=== PATIENT | female | born 1975 | race Caucasian/White ===

== ENCOUNTER → 2017-09-24 | Outpatient (CLI) | payer OTHER ==
--- NOTE | 2017-09-25 10:51 | MM ---
Reason for exam: screening (asymptomatic). Last mammogram was performed 6 years and 7 months ago. History: Family history of breast cancer in maternal grandmother at age 60. Took hormonal contraceptives for 5 years. Physical Findings: A clinical breast exam by your physician is recommended on an annual basis and results should be correlated with mammographic findings. MG Screening Mammo w CAD Bilateral CC and MLO view(s) were taken. Technologist: RT Amber (R)(M) Prior study comparison: March 10, 2011, [facility] DIGITAL RIGHT MAMMOGRAM w/CAD. February 27, 2011, bilateral digital screening mammo w/CAD. The breast tissue is heterogeneously dense. This may lower the sensitivity of mammography. Focal asymmetry left medial breast. This finding is changed and increased in size when compared with previous exams. ASSESSMENT: Incomplete: need additional imaging evaluation, BI-RAD 0 RECOMMENDATION: Special view mammogram of the left breast. If lesion persists on supplemental views, image directed ultrasound is recommended. [facility] will attempt to contact patient to return for supplemental views and ultrasound if indicated.
== END | disposition home or self-care (01) ==
LOC: RADMAMWWP 10:18
PROVIDERS: ATTEND Family Medicine
DX: Z12.31 Encounter for screening mammogram for malignant neoplasm of breast (principal)
CPT/HCPCS: 77067

== ENCOUNTER → 2017-10-04 | Outpatient (CLI) | payer OTHER ==
--- NOTE | 2017-10-09 08:52 | MM ---
Reason for exam: additional evaluation requested from abnormal screening. Last mammogram was performed less than 1 month ago. History: Family history of breast cancer in maternal aunt at age 70 and breast cancer in maternal grandmother at age 60. Took hormonal contraceptives for 5 years. Physical Findings: Nurse did not find any significant physical abnormalities on exam. MG Work Up Mamm w CAD LT Spot compression CC, spot compression CCRM, and LM view(s) were taken of the left breast. Prior study comparison: September 24, 2017, bilateral MG screening mammo w CAD. March 10, 2011, [facility] DIGITAL RIGHT MAMMOGRAM w/CAD. Nodular density persists. Ultrasound is recommended. These results were verbally communicated with the patient and result sheet given to the patient on 10/04/17. ASSESSMENT: Incomplete: need additional imaging evaluation, BI-RAD 0 RECOMMENDATION: Ultrasound of the left breast.
--- NOTE | 2017-10-09 08:54 | USB ---
Reason for exam: additional evaluation requested from abnormal screening. History: Family history of breast cancer in maternal aunt at age 70 and breast cancer in maternal grandmother at age 60. Took hormonal contraceptives for 5 years. US Breast Workup Limited LT Technologist: Adrianne Gloria, RT (R)(M) Left limited breast ultrasound including focal area of concern, retroareolar and axilla demonstrates no cystic or solid lesion seen. Given mammographic appearance, stereo core biopsy recommended. These results were verbally communicated with the patient and result sheet given to the patient on 10/04/17. ASSESSMENT: Suspicious, BI-RAD 4 RECOMMENDATION: Stereotactic core biopsy of the left breast. Called Dr. Priest with mammographic findings and has scheduled an appointment for the patient for 11/01/17 at 8:[address] Ernandez. Biopsy scheduled for 10/12/17 at 8:00. PRELIMINARY REPORT CALLED AND FAXED TO DR. ERNANDEZ ON 10/09/17.
== END | disposition home or self-care (01) ==
LOC: RADMAMWWP 14:21
PROVIDERS: ATTEND Family Medicine
DX: R92.8 Other abnormal and inconclusive findings on diagnostic imaging of breast (principal)
CPT/HCPCS: 77065

== ENCOUNTER 2017-12-23 01:23 | Emergency (ER) | payer MEDICAID, OTHER ==
[2017-12-23] MEDS ORDERED: KETOROLAC 30 MG/ML 1 ML VIAL IVP STA (02:06)
[2017-12-23] MEDS ORDERED: SODIUM CHLORIDE 0.9% 1,000 ML IV STA (02:06)
[2017-12-23] MEDS ORDERED: diphenhydrAMINE 50 MG CAP PO STA (02:06)
[2017-12-23] MEDS ORDERED: METOCLOPRAMIDE 5 MG/ML 2 ML VIAL IVP STA (02:06)
--- NOTE | 2017-12-23 02:09 | ED ---
General Adult HPI - General Source: patient, RN notes reviewed Mode of arrival: ambulatory Limitations: no limitations <Jonny Garduno P - Last Filed: 12/23/17 03:24> <Yanique Moreira P - Last Filed: 12/23/17 22:18> - General Chief complaint: Headache Stated complaint: Migrane Time Seen by Provider: 12/23/17 01:46 - History of Present Illness Initial comments: 42-year-old female presents to the emergency department for a chief complaint of headache 8 hours. Patient states this pain is consistent with previous migraines. She states the pain starts in the back of the head and travels up to her forehead. She denies this being the worst headache of her life. She admits to photosensitivity as well as sensitivity to sound. She admits to nausea as well. Patient states she has taken Motrin, Imitrex, and tramadol at home without relief.Patient has no other complaints at this time including shortness of breath, chest pain, abdominal pain, nausea or vomiting, or visual changes. (Jonny Garduno) - Related Data Home Medications Medication Instructions Recorded Confirmed Cholecalciferol [Vitamin D3] 1,000 unit PO DAILY 10/09/17 12/23/17 Citalopram Hydrobromide [CeleXA] 20 mg PO DAILY 10/09/17 12/23/17 Ergocalciferol [Vitamin D2] 50,000 unit PO Q7D 10/09/17 12/23/17 Ibuprofen [Motrin] 600 mg PO Q6HR PRN 10/09/17 12/23/17 Magnesium Oxide 800 mg PO DAILY 10/09/17 12/23/17 Propranolol HCl [Inderal Xl] 80 mg PO DAILY 10/09/17 12/23/17 SUMAtriptan SUCCINATE [Imitrex] 25 mg PO DAILY PRN 10/09/17 12/23/17 Vitamin B Complex 1 each PO DAILY 10/09/17 12/23/17 buPROPion HCL [Wellbutrin XL] 150 mg PO DAILY 10/09/17 12/23/17 traMADol HCL [Ultram] 50 mg PO Q6HR PRN 10/09/17 12/23/17 Allergies Allergy/AdvReac Type Severity Reaction Status Date / Time Penicillins Allergy Unknown Verified 12/23/17 01:39 Childhood venlafaxine [From Effexor] AdvReac Unknown Verified 12/23/17 01:39 Review of Systems ROS Other: All systems not noted in ROS Statement are negative. <Jonny Garduno P - Last Filed: 12/23/17 03:24> ROS Other: All systems not noted in ROS Statement are negative. <HarishYanique P - Last Filed: 12/23/17 22:18> ROS Statement: Those systems with pertinent positive or pertinent negative responses have been documented in the HPI. Past Medical History Past Medical History: Hypertension Additional Past Medical History / Comment(s): Migraine headaches, celiac disease History of Any Multi-Drug Resistant Organisms: None Reported Past Surgical History: Adenoidectomy, Tonsillectomy Additional Past Surgical History / Comment(s): novasure procedure 2010 Past Anesthesia/Blood Transfusion Reactions: Motion Sickness Past Psychological History: Anxiety, Depression Smoking Status: Never smoker Past Alcohol Use History: Rare Past Drug Use History: None Reported <Jonny Garduno P - Last Filed: 12/23/17 03:24> General Exam Limitations: no limitations General appearance: alert, in no apparent distress Head exam: Present: atraumatic, normocephalic, normal inspection Eye exam: Present: normal appearance, PERRL, EOMI. Absent: scleral icterus, conjunctival injection, periorbital swelling ENT exam: Present: normal exam, mucous membranes moist Neck exam: Present: normal inspection, full ROM. Absent: tenderness Respiratory exam: Present: normal lung sounds bilaterally. Absent: respiratory distress, wheezes, rales, rhonchi, stridor Cardiovascular Exam: Present: regular rate, normal rhythm, normal heart sounds. Absent: systolic murmur, diastolic murmur, rubs, gallop, clicks Extremities exam: Present: full ROM (Moving all extremities, full strength in all extremities), other (Sensation intact in all extremities) Neurological exam: Present: alert, oriented X3, CN II-XII intact Psychiatric exam: Present: normal affect, normal mood <Jonny Garduno P - Last Filed: 12/23/17 03:24> Vital Signs 12/23/17 12/23/17 01:36 03:34 Temperature 97.5 F L 98.5 F Pulse Rate 86 68 Respiratory 18 20 Rate Blood Pressure 135/84 132/78 O2 Sat by Pulse 98 98 Oximetry Medical Decision Making <Jonny Garduno P - Last Filed: 12/23/17 03:24> <Yanique Moreira - Last Filed: 12/23/17 22:18> - Medical Decision Making 42-year-old female with history of migraines presents for headache 8 hours. Headache came on gradually. Patient states is consistent with previous migraines. She denies this being the worst headache of her life. She has photosensitivity as well as sensitivity to sound. No focal neuro deficits, GCS 15. Patient is well appearing. Vitals are stable. Patient was given Toradol, Reglan, Benadryl as well as IV fluids. She states she is feeling much better. She states her pain has now reduced down to a 5. I did offer to give morphine but patient refused stating her headache was not that severe at this time. Patient agrees to follow up outpatient. She will continue her pain medications at home including Imitrex and tramadol. Patient were to return here if she has any worsening symptoms and to follow up with primary care in 1-2 days. (Jonny Garduno) I was available for consultation in the emergency department. The history and physical exam were done by the midlevel provider. I was consulted for this patient's care. I reviewed the case with the midlevel provider and based on their presentation of the patient, I agree with the assessment, medical decision making and plan of care as documented. (Yanique Moreira) Disposition Is patient prescribed a controlled substance at d/c from ED?: No Time of Disposition: 03:09 <Jonny Garduno P - Last Filed: 12/23/17 03:24> <Yanique Moreira - Last Filed: 12/23/17 22:18> Clinical Impression: Headache, History of migraine Disposition: HOME SELF-CARE Condition: Good Instructions: Migraine Headache (ED) Additional Instructions: Please continue at home pain medications. Please follow-up with primary care in 1-2 days. Return to the emergency department if you have any worsening symptoms. Referrals: Darin Priest, [Primary Care Provider] - 1-2 days
[2017-12-23 03:37] VITALS: BP 132/78; PULSE 68; RESP 20; TEMP 98.5
== END 2017-12-23 03:38 | disposition home or self-care (01) ==
LOC: EC 01:23
DX: G43.909 Migraine, unspecified, not intractable, without status migrainosus (principal); I10 Essential (primary) hypertension; F41.9 Anxiety disorder, unspecified; F32.9 Major depressive disorder, single episode, unspecified; Z79.899 Other long term (current) drug therapy; Z88.0 Allergy status to penicillin; Z88.8 Allergy status to other drugs, medicaments and biological substances
CPT/HCPCS: 99283; 96374; 96375; 96361; J2765; J1885

== ENCOUNTER → 2018-03-18 | Outpatient (CLI) | payer MEDICAID, OTHER ==
[2018-03-18 11:21] LABS: Appearance,Urine Cloudy (Clear); Bacteria,Urine Rare /hpf; Bilirubin,Urine Negative (Negative); Blood,Urine Negative (Negative); Color,Urine Yellow; Glucose,Urine (UA) Negative (Negative); Ketones,Urine Negative (Negative); Leukocyte Esterase,Urine Large (Negative); Mucus,Urine Rare /hpf; Nitrite,Urine Negative (Negative); Protein,Urine Negative (Negative); RBC,Urine 2 /hpf (0-5); Squamous Epithelial Cell,Urine 6 /hpf (0-4); Urobilinogen,Urine <2.0 mg/dL (<2.0); WBC,Urine 5 /hpf (0-5)
== END | disposition home or self-care (01) ==
LOC: LABMAIN 09:28
PROVIDERS: ATTEND Physician Assistant Medical
DX: R30.0 Dysuria (principal); R31.9 Hematuria, unspecified
CPT/HCPCS: 81001; 87086

== ENCOUNTER → 2018-04-09 | Outpatient (CLI) | payer MEDICAID, OTHER ==
--- NOTE | 2018-04-09 10:43 | MM ---
Reason for exam: follow-up at short interval from prior study. Last mammogram was performed 6 months ago. History: Family history of breast cancer in maternal aunt at age 70 and breast cancer in maternal grandmother at age 60. Benign MG stereo VAD BX LT of the left breast, October 12, 2017. Took hormonal contraceptives for 5 years. Physical Findings: Nurse did not find any significant physical abnormalities on exam. MG Diagnostic Mammo LT w CAD CC and MLO view(s) were taken of the left breast. Prior study comparison: October 04, 2017, left breast MG work up mamm w CAD LT. September 24, 2017, bilateral MG screening mammo w CAD. There are scattered fibroglandular densities. Previous mammotome biopsy in the left breast. Persistent density at the biopsy site lower inner quadrant. Given the persistent/recurrent density (possible small hematoma) additional short follow up recommended. These results were verbally communicated with the patient and result sheet given to the patient on 04/09/18. ASSESSMENT: Probably benign, BI-RAD 3 RECOMMENDATION: Follow-up diagnostic mammogram of both breasts in 6 months. (left one year follow up from benign biopsy)
== END | disposition home or self-care (01) ==
LOC: RADMAMWWP 09:26
PROVIDERS: ATTEND Surgery
DX: R92.8 Other abnormal and inconclusive findings on diagnostic imaging of breast (principal)
CPT/HCPCS: 77065

== ENCOUNTER → 2018-05-01 | Outpatient (CLI) | payer MEDICAID, OTHER ==
[2018-05-01 07:48] LABS: Basophils % (A) 1 %; Eosinophils # (A) 0.2 k/uL (0-0.7); Eosinophils % (A) 3 %; HCT 44.1 % (34.0-46.0); HGB 14.4 gm/dL (11.4-16.0); Lymphocytes # (A) 1.8 k/uL (1.0-4.8); Lymphocytes % (A) 26 %; MCH 29.2 pg (25.0-35.0); MCHC 32.6 g/dL (31.0-37.0); MCV 89.7 fL (80.0-100.0); Monocytes # (A) 0.4 k/uL (0-1.0); Monocytes % (A) 5 %; Neutrophils # (A) 4.4 k/uL (1.3-7.7); Neutrophils % (A) 64 %; Platelet Count 227 k/uL (150-450); RBC 4.91 m/uL (3.80-5.40); RDW 13.5 % (11.5-15.5)
[2018-05-01 09:11] LABS: Erythrocyte Sedimentation Rate 2 mm/hr (0-20)
[2018-05-01 11:53] LABS: ALT 35 U/L (8-44); AST 21 U/L (13-35); Albumin/Globulin Ratio 2.21 (1.60-3.17); Alkaline Phosphatase 73 U/L (41-126); C Reactive Protein <0.4 mg/dL (0.0-0.8); Calcium 8.9 mg/dL (8.7-10.3); Carbon Dioxide 25.2 mmol/L (21.6-31.8); Chloride 108 mmol/L (96-109); Cholesterol 161 mg/dL (0-200); Globulin 1.9 g/dL (1.6-3.3); Glucose 94 mg/dL (70-110); LDL Cholesterol,Calculated 95.6 mg/dL (0.0-131.0); Potassium 4.4 mmol/L (3.5-5.5); Sodium 141 mmol/L (135-145); Total Bilirubin 0.4 mg/dL (0.3-1.2); Total Protein 6.1 g/dL (6.2-8.2); Uric Acid 5.8 mg/dL (2.9-7.7)
[2018-05-01 12:38] LABS: Cyclic Citrullinated Pep IgG NEGATIVE (NEGATIVE)
[2018-05-03 09:54] LABS: Lyme IgG/IgM 0.1 Index
== END ==
LOC: LABWHC1 06:47
PROVIDERS: ATTEND Physician Assistant Medical
DX: Z00.00 Encounter for general adult medical examination without abnormal findings (principal); M13.0 Polyarthritis, unspecified; F41.1 Generalized anxiety disorder; E55.9 Vitamin D deficiency, unspecified; R53.83 Other fatigue
CPT/HCPCS: 36415; 80053; 80061; 84443; 84550; 85025; 85652; 86038; 86140; 86200; 86618

== ENCOUNTER → 2018-12-23 | Outpatient (CLI) | payer OTHER ==
--- NOTE | 2018-12-23 09:36 | MM ---
Reason for exam: additional evaluation requested from prior study. Last mammogram was performed 8 months ago. History: Family history of breast cancer in maternal aunt at age 70 and breast cancer in maternal grandmother at age 60. Benign MG stereo VAD BX LT of the left breast, October 12, 2017. Took hormonal contraceptives for 5 years. Physical Findings: Nurse did not find any significant physical abnormalities on exam. MG Diagnostic Mammo w CAD [facility] Bilateral CC and MLO view(s) were taken. Prior study comparison: April 09, 2018, left breast MG diagnostic mammo LT w CAD. October 04, 2017, left breast MG work up mamm w CAD LT. September 24, 2017, bilateral MG screening mammo w CAD. There are scattered fibroglandular densities. Some residual asymmetric density medially left breast at the site of biopsy clip. No significant new findings when compared with previous films. These results were verbally communicated with the patient and result sheet given to the patient on 12/23/18. ASSESSMENT: Benign, BI-RAD 2 RECOMMENDATION: Routine screening mammogram of both breasts in 1 year.
== END | disposition home or self-care (01) ==
LOC: RADMAMWWP 08:35
PROVIDERS: ATTEND Surgery
DX: R92.8 Other abnormal and inconclusive findings on diagnostic imaging of breast (principal)
CPT/HCPCS: 77066

== ENCOUNTER → 2019-12-24 | Outpatient (CLI) | payer OTHER ==
--- NOTE | 2019-12-24 11:54 | XR ---
Right hand HISTORY: Pain and swelling first metacarpophalangeal joint, right finger pain 3 views the right hand Correlation to prior exam 05/06/2015 No significant interval change is evident. There is no fracture or dislocation. Joint space loss, sub chondral sclerosis, hypertrophic change at the carpometacarpal joint of the first digit is noted. The re is a small ossific density which is well-corticated at the bilateral aspect of the joint. IMPRESSION: Osteoarthritis.
== END | disposition home or self-care (01) ==
LOC: RADXRYALE 09:33
PROVIDERS: ATTEND Physician Assistant Medical
DX: M19.041 Primary osteoarthritis, right hand (principal)

== ENCOUNTER → 2019-12-30 | Outpatient (CLI) | payer OTHER ==
--- NOTE | 2019-12-31 13:06 | MM ---
Reason for exam: screening (asymptomatic). Last mammogram was performed 1 year ago. History: Family history of breast cancer in maternal aunt at age 70 and breast cancer in maternal grandmother at age 60. Benign MG stereo VAD BX LT of the left breast, October 12, 2017. Took hormonal contraceptives for 5 years. Physical Findings: A clinical breast exam by your physician is recommended on an annual basis and results should be correlated with mammographic findings. MG Screening Mammo w CAD Bilateral CC and MLO view(s) were taken. Prior study comparison: December 23, 2018, bilateral MG diagnostic mammo w CAD [facility]. April 09, 2018, left breast MG diagnostic mammo LT w CAD. There are scattered fibroglandular densities. Previous mammotome biopsy in the left breast, stable. Asymmetric breast tissue. There is no discrete abnormality. ASSESSMENT: Benign, BI-RAD 2 RECOMMENDATION: Routine screening mammogram of both breasts in 1 year.
== END | disposition home or self-care (01) ==
LOC: RADMAMWWP 15:46
PROVIDERS: ATTEND Family Medicine
DX: Z12.31 Encounter for screening mammogram for malignant neoplasm of breast (principal)
CPT/HCPCS: 77067

== ENCOUNTER → 2020-08-30 | Outpatient (CLI) | payer OTHER ==
[2020-08-30 08:14] LABS: Basophils % (A) 1 %; Eosinophils # (A) 0.2 k/uL (0-0.7); Eosinophils % (A) 3 %; HCT 42.4 % (34.0-46.0); HGB 14.2 gm/dL (11.4-16.0); Lymphocytes # (A) 1.6 k/uL (1.0-4.8); Lymphocytes % (A) 22 %; MCH 30.7 pg (25.0-35.0); MCHC 33.5 g/dL (31.0-37.0); MCV 91.7 fL (80.0-100.0); Mean Platelet Volume 8.8; Monocytes # (A) 0.4 k/uL (0-1.0); Monocytes % (A) 5 %; Neutrophils # (A) 4.7 k/uL (1.3-7.7); Neutrophils % (A) 67 %; Platelet Count 215 k/uL (150-450); RBC 4.62 m/uL (3.80-5.40); RDW 12.7 % (11.5-15.5)
[2020-08-30 08:36] LABS: African American GFR (CKD) >90 (>60 ml/min/1.73 sqM); Anion Gap 6 mmol/L; Blood Urea Nitrogen 15 mg/dL (7-17); Carbon Dioxide 27 mmol/L (22-30); Chloride 104 mmol/L (98-107); Glucose 107 mg/dL (74-99); Non-African American GFR(CKD) >90 (>60 ml/min/1.73 sqM); Potassium 3.9 mmol/L (3.5-5.1); Sodium 137 mmol/L (137-145)
== END | disposition home or self-care (01) ==
LOC: LABPAT 07:53
PROVIDERS: ATTEND Obstetrics & Gynecology
DX: Z01.812 Encounter for preprocedural laboratory examination (principal); Z01.810 Encounter for preprocedural cardiovascular examination; D25.9 Leiomyoma of uterus, unspecified; N80.0 Endometriosis of uterus; N83.201 Unspecified ovarian cyst, right side; I10 Essential (primary) hypertension
CPT/HCPCS: 36415; 80051; 82565; 82947; 84520; 85025; 87086

== ENCOUNTER 2020-09-06 08:33 | Inpatient (IN) | payer OTHER ==
[2020-09-02 14:26] VITALS: BMI 31.3
[~2020-09-06 08:33] MED LIST: DEXAMETHASONE SOD PHOSPHATE 4 MG/ML 1 ML VIAL IV ONE; HYDROmorphone 0.5 MG/0.5 ML SYRINGE IVP PRN; MIDAZOLAM 2 MG/2 ML VIAL IV PRN; ONDANSETRON 4 MG/2 ML VIAL IVP ONE; SCOPOLAMINE 1.5MG/72HR PATCH TRANSDERM ONE
[2020-09-06] MEDS: LACTATED RINGERS 1,000 ML IV SCH ×2 (09:19→23:31)
[2020-09-06] MEDS ORDERED: MIDAZOLAM 2 MG/2 ML VIAL IVP ONE (09:42)
[2020-09-06] MEDS ORDERED: GLYCOPYRROLATE 0.2 MG/ML 2 ML VIAL ONE (10:08)
[2020-09-06] MEDS ORDERED: ROCURONIUM 10 MG/ML (5 ML VIAL) IV ONE (10:08)
[2020-09-06] MEDS ORDERED: diphenhydrAMINE 50 MG/ML 1 ML VIAL ONE (10:08)
[2020-09-06] MEDS ORDERED: ePHEDrine SULFATE/0.9% NACL/PF 50 MG/5 ML SYRINGE IV ONE (10:08)
[2020-09-06] MEDS ORDERED: NEOSTIGMINE 1 MG/ML 10 ML VIAL ONE (10:08)
[2020-09-06] MEDS ORDERED: WATER FOR INJECTION, STERILE 10 ML VIAL IV ONE (10:08)
[2020-09-06] MEDS ORDERED: MORPHINE SULFATE (PF) 0.3 MG/0.3 ML SYR ONE (10:08)
[2020-09-06] MEDS ORDERED: LIDOCAINE 1% INJ 10MG/ML (20 ML MDV) ONE (10:08)
[2020-09-06] MEDS ORDERED: KETOROLAC 15 MG/ML 1 ML VIAL ONE (10:08)
[2020-09-06] MEDS ORDERED: fentaNYL (PF) 50 MCG/ML 2 ML AMP ONE (10:08)
[2020-09-06] MEDS ORDERED: SUCCINYLCHOLINE CHLORIDE 100 MG/5 ML SYR IV ONE (10:08)
[2020-09-06] MEDS ORDERED: PROPOFOL 10 MG/ML 20 ML VIAL IV ONE (10:08)
[2020-09-06] MEDS ORDERED: PHENYLEPHRINE-0.9% NACL SYG 1,000 MCG/10 ML SYRINGE ONE (10:08)
[2020-09-06] MEDS ORDERED: LACTATED RINGERS 1,000 ML IV ONE ×3 (11:12→12:38)
[2020-09-06] MEDS ORDERED: ONDANSETRON 4 MG/2 ML VIAL IVP PRN (11:59)
[2020-09-06] MEDS ORDERED: SIMETHICONE 80 MG CHEWABLE PO PRN (11:59)
[2020-09-06] MEDS ORDERED: METOCLOPRAMIDE 5 MG/ML 2 ML VIAL IVP PRN (11:59)
--- NOTE | 2020-09-06 11:59 | P.OP ---
Date of Procedure: 09/06/20 Preoperative Diagnosis: Fibroid uterus, complex left ovarian mass Postoperative Diagnosis: Same, endometriosis, pelvic adhesions Procedure(s) Performed: Total abdominal hysterectomy, left salpingo-oophorectomy, right salpingectomy, adhesio lysis Anesthesia: VIANNEY Surgeon: Julia Gray Surgical Product Sales Consultant #1: Letty Mittal Estimated Blood Loss (ml): 150 IV fluids (ml): 1,200 Urine output (ml): 300 Pathology: other (Cervix, uterus, left fallopian tube and ovary, right fallopian tube) Condition: stable Disposition: PACU Description of Procedure: Patient is brought to the operating room where a spinal anesthetic is administered with Duramorph, followed by general anesthetic. She's placed in the dorsal supine position after prepping of the cervix, vagina, abdomen are all performed. Abdomen is draped in usual sterile fashion. Owens catheter to direct drainage. Antibiotics are given. The appropriate timeout is performed to assure proper patient and procedural identification. Urine hCG is negative. A low transverse incision is made through the skin, carried down through the subcutaneous tissue which is approximately 6-8 cm deep. Fascia is isolated, scored, extended bilaterally with curved Kim scissors. Peritoneum is next identified and incised, there is no bowel or bladder involvement. The O'Roman- O'Azar retractor is used and the abdomen is packed in the usual fashion. Specimen is elevated with Erin clamps on either side. Round ligaments are identified, clamped cut and suture ligated. There is a complex left adnexal mass that is gently and systematically dissected from the pelvic sidewall utilizing Metzenbaum scissors, DeBakey forceps, and blunt dissection. The right infundibulopelvic ligament is identified, clamped cut and suture ligated. The pedicle was flashed and retied for excellent hemostasis. Right tube and ovary are maintained in situ.. Skeletonization is performed on the right uterine vasculature, the arteries are identified, clamped cut and suture ligated. Metzenbaum scissors are used to keep the bladder swept well from the operative field to avoid bladder and/or ureteral injury. After carefully dissecting the left tube and ovary from the sidewall, the infundibulopelvic ligament is again clamped cut and suture ligated. Uterine vasculature is identified on the left, skeletonized, clamped cut and suture ligated. The uterosacral ligaments are identified, clamped cut and suture ligated. Curved Heaneys are used across the entire lower aspect of the cervix, and the cervix uterus are removed along with the left tube and ovary. 0 Vicryl sutures used in a running fashion, locking stitch to close the vaginal cuff. All pedicles are clean and dry. Pelvis is irrigated, clean and dry. The right tube is then removed, and sent to pathology as well. Surgicel is used on the vaginal cuff to aid in hemostasis. Peritoneum is allowed to close by secondary intention. Fascia is closed in a running locking stitch of 0 Vicryl with over ligation in the midline. Subcutaneous tissue is irrigated, clean and dry. It is reapproximated with 3-0 Vicryl in a running stitch. 4-0 undyed Monocryl is used in a subcuticular manner for final skin closure. Steri-Strips and Mastisol are applied to the wound. Owens is noted to be draining clear urine. Patient is brought back to the recovery room in excellent condition with stable vital signs including blood pressure 90/55, pulse 78, 99% O2 saturation. Owens is draining clear urine. All sponge needle and enhancement counts are correct.
[2020-09-06] MEDS ORDERED: HYDROmorphone 0.5 MG/0.5 ML SYRINGE IVP PRN (13:38)
[2020-09-06] MEDS ORDERED: NALOXONE 0.4 MG/ML 1 ML VIAL IV PRN (13:38)
[2020-09-06] MEDS ORDERED: NALBUPHINE 10 MG/ML (1 ML AMP) IV PRN (13:38)
[2020-09-06] MEDS: diphenhydrAMINE 50 MG/ML 1 ML VIAL IVP PRN ×2 (14:43→20:55)
[2020-09-06] MEDS: KETOROLAC 15 MG/ML 1 ML VIAL IVP PRN ×2 (17:18→23:29)
[2020-09-06] MEDS: IBUPROFEN 600 MG TAB PO PRN (20:50)
[2020-09-07] MEDS: diphenhydrAMINE 50 MG/ML 1 ML VIAL IVP PRN ×2 (03:50→10:14)
[2020-09-07] MEDS: IBUPROFEN 600 MG TAB PO PRN ×2 (03:50→10:13)
[2020-09-07 05:15] LABS: Basophils % (A) 0 %; Eosinophils # (A) 0.1 k/uL (0-0.7); Eosinophils % (A) 1 %; HCT 38.5 % (34.0-46.0); HGB 12.9 gm/dL (11.4-16.0); Lymphocytes # (A) 1.8 k/uL (1.0-4.8); Lymphocytes % (A) 14 %; MCH 31.4 pg (25.0-35.0); MCHC 33.4 g/dL (31.0-37.0); Mean Platelet Volume 8.5; Monocytes # (A) 0.6 k/uL (0-1.0); Monocytes % (A) 5 %; Neutrophils % (A) 79 %; Platelet Count 191 k/uL (150-450); RBC 4.09 m/uL (3.80-5.40); RDW 12.6 % (11.5-15.5); WBC 12.7 k/uL (3.8-10.6)
--- NOTE | 2020-09-07 08:03 | P.DS ---
Providers Date of admission: 09/06/20 08:33 Expected date of discharge: 09/07/20 Attending physician: Julia Gray Primary care physician: [facility] Course: This is a 45-year-old female who presented with a complex left adnexal mass and fibroid uterus. Decision was made to proceed with surgical therapy. Patient has a history of hypertension as well as anxiety. Please see dictated history and physical for details. Patient underwent a total abdominal hysterectomy, left salpingo-oophorectomy, and right salpingectomy yesterday. She had a spinal with Duramorph. Surgery was unremarkable, right ovary appeared normal and was left in situ. Please see dictated operative note for details. The patient is doing well. Owens catheter has been removed, she has yet to void. Vital signs are stable and she is afebrile. There is only scant vaginal drainage. The incision is clean and dry, intact, Steri-Strips applied. Chest is clear in all gaitan. Patient has not yet passed flatus, but the abdomen is soft and nontender, active bowel sounds. No CVA tenderness. Extremities are negative. Plan is for increased diet and activity this morning. We will await a spontaneous void. If patient is doing well, my plan is for discharge home later today. She will follow-up with me in the office in 2 weeks. She will call with any fevers shakes or chills, foul smelling or copious lochia, with the passage of large blood clots, with any pain not alleviated by [id number] products, or indeed with any concerns. Assessment: Doing well postoperative day #1 Patient Condition at Discharge: Good Plan - Discharge Summary Discharge Rx Participant: No New Discharge Prescriptions: No Action buPROPion HCL [Wellbutrin XL] 300 mg PO DAILY Propranolol HCl [Inderal Xl] 80 mg PO DAILY Ergocalciferol [Vitamin D2] 50,000 unit PO Q7D Citalopram Hydrobromide [CeleXA] 40 mg PO DAILY traMADol HCL [Ultram] 50 mg PO Q6HR PRN PRN Reason: Migraine Headache Ibuprofen [Motrin] 600 mg PO Q6HR PRN PRN Reason: Migraine Headache Rizatriptan Benzoate [Maxalt] 10 mg PO DAILY PRN PRN Reason: migraines Pseudoephedrine [Sudafed] 30 mg PO DAILY PRN PRN Reason: allergies Cetirizine HCl [Zyrtec] 10 mg PO DAILY PRN PRN Reason: allergies Ondansetron Odt [Zofran Odt] 4 mg PO DAILY PRN PRN Reason: Nausea Discharge Medication List Citalopram Hydrobromide [CeleXA] 40 mg PO DAILY 10/09/17 [History] Ergocalciferol [Vitamin D2] 50,000 unit PO Q7D 10/09/17 [History] Ibuprofen [Motrin] 600 mg PO Q6HR PRN 10/09/17 [History] Propranolol HCl [Inderal Xl] 80 mg PO DAILY 10/09/17 [History] buPROPion HCL [Wellbutrin XL] 300 mg PO DAILY 10/09/17 [History] traMADol HCL [Ultram] 50 mg PO Q6HR PRN 10/09/17 [History] Cetirizine HCl [Zyrtec] 10 mg PO DAILY PRN 09/02/20 [History] Ondansetron Odt [Zofran Odt] 4 mg PO DAILY PRN 09/02/20 [History] Pseudoephedrine [Sudafed] 30 mg PO DAILY PRN 09/02/20 [History] Rizatriptan Benzoate [Maxalt] 10 mg PO DAILY PRN 09/02/20 [History] Follow up Appointment(s)/Referral(s): Julia Gray MD [STAFF PHYSICIAN] - 2 Weeks Discharge Disposition: HOME SELF-CARE
[2020-09-07] MEDS ORDERED: CITALOPRAM HYDROBROMIDE 20 MG TAB PO SCH (09:00)
[2020-09-07] MEDS ORDERED: buPROPion XL 300 MG TAB.ER.24H PO SCH (09:00)
[2020-09-07 09:08] VITALS: RESP 18
--- NOTE | 2020-09-07 10:50 | P.PN ---
Progress Note - Text 09/07/20 652am 45-year-old female status post procedure by Dr. Gray. Patient has a VAS of 3 with no complains of nausea vomiting. Patient does have pruritus which should subside by the end of the day. Doing very well
[2020-09-07] MEDS ORDERED: ACETAMINOPHEN TAB 325 MG TAB PO PRN (12:01)
[2020-09-07] MEDS ORDERED: diphenhydrAMINE 25 MG CAP PO PRN (14:17)
[2020-09-07 14:19] VITALS: BP 112/68; PULSE 84; TEMP 98.2
[2020-09-07] MEDS: KETOROLAC 15 MG/ML 1 ML VIAL IVP PRN (16:14)
== END 2020-09-07 18:57 | disposition home or self-care (01) | DRG 743 ==
LOC: 2ORMAIN 08:33 → EDSTATUS 11:20 → 6PED 12:12
PROVIDERS: ADMIT Obstetrics & Gynecology; ATTEND Obstetrics & Gynecology
PROC: 0UT90ZZ Resection of Uterus, Open Approach (ICD-10-PCS; principal; 2020-09-06 09:50)
PROC: 0UT10ZZ Resection of Left Ovary, Open Approach (ICD-10-PCS; principal; 2020-09-06 09:50)
PROC: 0UT70ZZ Resection of Bilateral Fallopian Tubes, Open Approach (ICD-10-PCS; principal; 2020-09-06 09:50)
PROC: 0UTC0ZZ Resection of Cervix, Open Approach (ICD-10-PCS; principal; 2020-09-06 09:50)
DX: D25.9 Leiomyoma of uterus, unspecified (principal); N83.292 Other ovarian cyst, left side; N80.9 Endometriosis, unspecified; L29.9 Pruritus, unspecified; I10 Essential (primary) hypertension; F41.9 Anxiety disorder, unspecified; N73.6 Female pelvic peritoneal adhesions (postinfective); Z79.899 Other long term (current) drug therapy; Z90.89 Acquired absence of other organs; Z98.890 Other specified postprocedural states
CPT/HCPCS: 81025; 85025; 86850; 86900; 86901; 88307

== ENCOUNTER → 2021-02-03 | Outpatient (CLI) | payer OTHER ==
--- NOTE | 2021-02-07 11:20 | MM ---
Reason for exam: screening (asymptomatic). Last mammogram was performed 1 year and 1 month ago. History: Patient is postmenopausal. Family history of breast cancer in maternal aunt at age 70 and breast cancer in maternal grandmother at age 60. Benign MG stereo VAD BX LT of the left breast, October 12, 2017. Took hormonal contraceptives for 5 years. Physical Findings: A clinical breast exam by your physician is recommended on an annual basis and results should be correlated with mammographic findings. MG Screening Mammo w CAD Bilateral CC and MLO view(s) were taken. Prior study comparison: December 30, 2019, bilateral MG screening mammo w CAD. December 23, 2018, bilateral MG diagnostic mammo w CAD [facility]. There are scattered fibroglandular densities. Previous mammotome biopsy in the left breast. No significant changes when compared with prior studies. ASSESSMENT: Benign, BI-RAD 2 RECOMMENDATION: Routine screening mammogram of both breasts in 1 year.
== END | disposition home or self-care (01) ==
LOC: RADMAMWWP 08:15
PROVIDERS: ATTEND Family Medicine
DX: Z12.31 Encounter for screening mammogram for malignant neoplasm of breast (principal)
CPT/HCPCS: 77067

== ENCOUNTER → 2021-08-01 | Outpatient (CLI) | payer BC, OTHER ==
--- NOTE | 2021-08-01 10:02 | XR ---
EXAMINATION TYPE: XR abdomen 2V DATE OF EXAM: 08/01/2021 COMPARISON: NONE HISTORY: Pain TECHNIQUE: One view abdominal series FINDINGS: The osseous structures are intact. The bowel gas pattern is nonspecific. Arthropathy of the hips cor relate for femoral acetabular impingement. Small calcifications in the pelvis are nonspecific. IMPRESSION: 1. Nonspecific abdomen. Tiny punctate calcifications left hemipelvis nonspecific. If concern for ure teral calculus correlate with noncontrast CT of the abdomen and pelvis.
== END | disposition home or self-care (01) ==
LOC: RADXRYALE 09:26
PROVIDERS: ATTEND Physician Assistant Medical
DX: R10.814 Left lower quadrant abdominal tenderness (principal); R10.32 Left lower quadrant pain
CPT/HCPCS: 74019

== ENCOUNTER → 2021-08-18 | Outpatient (CLI) | payer BC, OTHER ==
--- NOTE | 2021-08-19 08:11 | CT ---
EXAMINATION TYPE: CT abdomen pelvis w con CT DLP: 1720.80 mGycm, Automated exposure control for dose reduction was used. DATE OF EXAM: 08/18/2021 6:00 PM COMPARISON: None CLINICAL INDICATION:Female, 46 years old with history of R10.30 Lower abd pain R10.814 LLQ abd tender ness; left lower abdominal pain with nausea/ tenderness that radiates to backside TECHNIQUE: Standard CT of the abdomen and pelvis following the administration of 100 cc of Isovue 3 00 IV contrast material and oral contrast. Coronal and sagittal reformats were performed. FINDINGS: LOWER CHEST: Unremarkable ABDOMEN LIVER: Diffusely hypoattenuating parenchyma. GALLBLADDER AND BILE DUCTS: Unremarkable. PANCREAS: Unremarkable. SPLEEN: Unremarkable. ADRENAL GLANDS: Unremarkable. KIDNEYS AND URETERS: No evidence of hydronephrosis or renal calculus. PELVIS BLADDER: Unremarkable REPRODUCTIVE: Unremarkable. ABDOMEN & PELVIS STOMACH AND BOWEL: No evidence thickening. No evidence of bowel obstruction. Appendix is normal PERITONEUM: No evidence of pneumoperitoneum or free fluid. VASCULATURE: No evidence of aortic aneurysm. MUSCULOSKELETAL: No acute osseous abnormalities LYMPH NODES: No gross evidence for lymphadenopathy. SOFT TISSUE/ABDOMINAL WALL: Unremarkable IMPRESSION: 1. No evidence for acute intraluminal process. 2. Hepatic steatosis.
== END | disposition home or self-care (01) ==
LOC: RADCTMAIN 16:00
PROVIDERS: ATTEND Family Medicine
DX: R10.30 Lower abdominal pain, unspecified (principal); R10.814 Left lower quadrant abdominal tenderness; K76.0 Fatty (change of) liver, not elsewhere classified
CPT/HCPCS: 74177; Q9967

== ENCOUNTER → 2021-08-23 | Outpatient (CLI) | payer BC, OTHER ==
--- NOTE | 2021-08-23 13:40 | CT ---
EXAMINATION TYPE: CT abdomen pelvis wo con CT DLP: 1051 mGycm, Automated exposure control for dose reduction was used. DATE OF EXAM: 08/23/2021 1:30 PM COMPARISON: CT abdomen pelvis 08/18/2021 CLINICAL INDICATION:Female, 46 years old with history of R10.814 ABDOMINAL PAIN; LLQ abdominal pain TECHNIQUE: Standard CT of the abdomen and pelvis without IV or oral contrast. Lack of IV or oral co ntrast limits evaluation of solid and hollow organ viscera. Coronal and sagittal reformats were perfo rmed. FINDINGS: LOWER CHEST: Unremarkable ABDOMEN LIVER: Diffusely hypoattenuating parenchyma. No suspicious lesion within the limitations of a noncont rast exam. GALLBLADDER AND BILE DUCTS: Unremarkable. PANCREAS: Unremarkable noncontrast appearance. SPLEEN: Unremarkable noncontrast appearance. ADRENAL GLANDS: Unremarkable noncontrast appearance.. KIDNEYS AND URETERS: No evidence of hydronephrosis or renal calculus. PELVIS BLADDER: Incompletely distended but grossly unremarkable. REPRODUCTIVE: Unremarkable. ABDOMEN & PELVIS STOMACH AND BOWEL: Stomach and duodenum are unremarkable. No focal wall thickening or surrounding inf lammatory changes. The appendix is within normal limits containing retained contrast. Colonic diverti culosis without evidence for acute diverticulitis. No evidence of bowel obstruction. PERITONEUM: No evidence of pneumoperitoneum or free fluid. VASCULATURE: No evidence of aortic aneurysm. MUSCULOSKELETAL: No acute osseous abnormalities LYMPH NODES: No gross evidence for lymphadenopathy. SOFT TISSUE/ABDOMINAL WALL: Unremarkable IMPRESSION: 1. No acute abdominal/pelvic process. No significant change from prior examination on 08/18/2021. 2. Hepatic steatosis. 3. Colonic diverticulosis without evidence for acute diverticulitis.
== END | disposition home or self-care (01) ==
LOC: RADCTMAIN 13:11
PROVIDERS: ATTEND Physician Assistant Medical
DX: R10.814 Left lower quadrant abdominal tenderness (principal); R11.2 Nausea with vomiting, unspecified; R42 Dizziness and giddiness
CPT/HCPCS: 74176

== ENCOUNTER → 2022-02-28 | Outpatient (CLI) | payer BC, OTHER ==
--- NOTE | 2022-03-01 10:11 | MM ---
Reason for Exam: Screening (asymptomatic). Last mammogram was performed 1 year(s) and 1 month(s) ago. Patient History: Menarche at age 14. First Full-Term at age 25. Left ovary removed at age 45. Hysterectomy at age 45. Postmenopausal. Patient used Hormonal Contraceptives for 5 years. 10/12/2017, Benign Core Biopsy on the left side. Maternal grandmother had breast cancer, age 60. Maternal aunt had breast cancer, age 70. Risk Values: Gertrude 5 year model risk: 1.2%. NCI Lifetime model risk: 10.4%. Prior Study Comparison: 12/23/2018 Bilateral Diagnostic Mammogram, [facility]. 12/30/2019 Bilateral Screening Mammogram, [facility]. 02/03/2021 Bilateral Screening Mammogram, [facility]. Tissue Density: There are scattered fibroglandular densities. Findings: Analyzed By CAD. There is no suspicious group of microcalcifications or new suspicious mass in either breast. Previous mammotome biopsy in the left breast. Overall Assessment: Benign, BI-RAD 2 Management: Screening Mammogram of both breasts in 1 year. A clinical breast exam by your physician is recommended on an annual basis and results should be correlated with mammographic findings. Electronically signed and approved by: Maximo Luu D.O.
== END | disposition home or self-care (01) ==
LOC: RADMAMWWP 08:28
PROVIDERS: ATTEND Family Medicine
DX: Z12.31 Encounter for screening mammogram for malignant neoplasm of breast (principal); Z78.0 Asymptomatic menopausal state; Z80.3 Family history of malignant neoplasm of breast
CPT/HCPCS: 77063; 77067

== ENCOUNTER → 2022-09-26 | Outpatient (CLI) | payer BC, OTHER ==
--- NOTE | 2022-09-26 12:14 | CA ---
Transthoracic Echo Report Name: Rain Rainey Age: 47 Gender: F : 1975 Exam Date: 09/26/2022 08:42 Exam Location: [facility] Ht (in): 65 Wt (lb): 202 Ordering Physician: Darin Priest DO Attending/Referring Phys: Óscar Rain James PAC Packaging Sales Representative Autumn Brewer [facility] Procedure CPT: Indications: R07.9 CHEST PAIN, UNSPECIFIED Cardiac Hx: Technical Quality: Fair Contrast 1: Total Dose (mL): Contrast 2: Total Dose (mL): MEASUREMENTS (Male / Female) Normal Values 2D ECHO LV Diastolic Diameter PLAX 4.8 cm 4.2 - 5.9 / 3.9 - 5.3 cm LV Systolic Diameter PLAX 3.1 cm IVS Diastolic Thickness 0.9 cm 0.6 - 1.0 / 0.6 - 0.9 cm LVPW Diastolic Thickness 1.0 cm 0.6 - 1.0 / 0.6 - 0.9 cm LV Relative Wall Thickness 0.4 LVOT Diameter 2.1 cm Ascending Aorta Diameter 3.1 cm M-MODE Aortic Root Diameter MM 2.7 cm LA Systolic Diameter MM 4.3 cm LA Ao Ratio MM 1.6 AV Cusp Separation MM 2.0 cm DOPPLER AV Peak Velocity 131.4 cm/s AV Peak Gradient 6.9 mmHg AV Mean Velocity 86.3 cm/s AV Mean Gradient 3.4 mmHg AV Velocity Time Integral 26.0 cm LVOT Peak Velocity 102.4 cm/s LVOT Peak Gradient 4.2 mmHg LVOT Velocity Time Integral 22.0 cm LVOT Stroke Volume 74.6 cm??? LVOT Stroke Volume Index 37.5 ml/m??? LVOT Cardiac Index 2395.8 cm???/min???m??? AV Area Cont Eq vti 2.9 cm??? AV Area Cont Eq pk 2.6 cm??? Mitral E Point Velocity 66.7 cm/s Mitral A Point Velocity 83.7 cm/s Mitral E to A Ratio 0.8 MV Deceleration Time 169.8 ms LV E' Lateral Velocity 9.7 cm/s Mitral E to LV E' Lateral Ratio 6.9 LV E' Septal Velocity 8.9 cm/s Mitral E to LV E' Septal Ratio 7.5 Right Atrial Pressure 3.0 mmHg FINDINGS Left Ventricle Normal Left ventricular size, wall thickness, systolic function with no obvious regional wall motion abnormalities. Left ventricular ejection fraction is estimated at 55-60%. Right Ventricle Normal right ventricular size. Right Atrium Normal right atrial size. Left Atrium Left atrial size at the upper limits of normal. Mitral Valve Structurally normal mitral valve. No mitral regurgitation. Aortic Valve Trileaflet aortic valve. No aortic valve stenosis or regurgitation. Tricuspid Valve Structurally normal tricuspid valve. No tricuspid regurgitation. Pulmonic Valve Structurally normal pulmonic valve. No pulmonic regurgitation. Pericardium No pericardial effusion. Aorta Normal size aortic root and proximal ascending aorta. CONCLUSIONS Normal LV size and systolic function Previewed by: Dr. Ravin Larry MD (Electronically Signed) Final Date: 26 September 2022 12:13
--- NOTE | 2022-09-26 17:06 | CA ---
Exercise Stress Test Report Name: Rain Rainey Exam Date: 09/26/2022 09:07 Exam Location: [place] [facility] Ht (in): 65 Wt (lb): 202 BSA: 1.99 Ordering Phys: Darin Priest DO Referring Phys: Olivia Cantrellshelley James PAC Technologist: Cristhian Gan Age: 47 Gender: F : 1975 Procedure CPT: Indications: R07.9 CHEST PAIN, UNSPECIFIED ICD-10 Codes: Patient History: CHEST PAIN, DIFFICULTY IN BREATHING, PALPITATIONS, HTN, ELEVATED CHOLESTEROL LEVELS, FAMILY HX OF HEART DISEASE Medications: PROPANOLOL, LOSARTAN, HZTZ, WELLBUTRIN, CELEXA, NORTEC Meds past 24 hrs: Pretest Chest Pain: STRESS TEST Ulises Protocol Exercise Duration (min:sec): 09:[address] Depressions (mm): Angina Score: Yusuf Score: Resting HR (bpm): 89 Peak HR (bpm): 149 Resting BP (mmHg): 123 / 92 Peak BP (mmHg): 191 / 69 MPHR: 174 Target HR: 148 % MPHR: 86 METS: 10.3 Total Dose: Peak Dose: Atropine: Double Product: 69577 BP Response: Stress Termination: MAX EXERTION/TARGET HR Stress Symptoms: NO SYMPTOMS Stress Summary: ECG ANALYSIS Resting ECG: Stress ECG: CONCLUSIONS Exercise stress test Baseline heart rate 76 beats a minute, Baseline blood pressure 123/92 mmHg No symptoms Good exercise capacity and a Ulises protocol for 9 minutes No ECG evidence for ischemia No arrhythmias noted Dr. Ravin Larry MD (Electronically Signed) Final Date: 26 September 2022 17:05
== END | disposition home or self-care (01) ==
LOC: RADECHMAIN 08:11
PROVIDERS: ATTEND Family Medicine
DX: I10 Essential (primary) hypertension (principal); E78.2 Mixed hyperlipidemia; R07.9 Chest pain, unspecified; Z82.49 Family history of ischemic heart disease and other diseases of the circulatory system
CPT/HCPCS: 93017; 93306

== ENCOUNTER → 2023-05-01 | Outpatient (CLI) | payer BC, OTHER ==
--- NOTE | 2023-05-04 10:10 | MM ---
Reason for Exam: Screening (asymptomatic). Last mammogram was performed 1 year(s) and 2 month(s) ago. Patient History: Menarche at age 14. First Full-Term at age 25. Left ovary removed at age 45. Hysterectomy at age 45. Postmenopausal. Patient used Hormonal Contraceptives for 5 years. 10/12/2017, Benign Core Biopsy on the left side. Maternal grandmother had breast cancer, age 60. Maternal aunt had breast cancer, age 70. Risk Values: Gertrude 5 year model risk: 1.1%. NCI Lifetime model risk: 10.2%. Prior Study Comparison: 12/30/2019 Bilateral Screening Mammogram, [facility]. 02/03/2021 Bilateral Screening Mammogram, [facility]. 02/28/2022 Bilateral MG 3D screening mammo w/cad, [facility]. Tissue Density: The breasts are heterogeneously dense, which may obscure small masses. Findings: Analyzed By CAD. There is no suspicious group of microcalcifications or new suspicious mass in either breast. Surgical clip in the left breast. A biopsy marker noted. On the cc view there is a small rounded nodule central margin right breast approximately 4.5 cm from the nipple. Recommend spot compression CC and rolled medial cc view. Overall Assessment: Incomplete: need additional imaging evaluation, BI-RAD 0 Management: Diagnostic Mammogram of the right breast. . Patient should continue monthly self-breast exams. A clinical breast exam by your physician is recommended on an annual basis. This exam should not preclude additional follow-up of suspicious palpable abnormalities. Note on Gertrude scores and lifetime risk: 1. A Gertrude score greater than 3% is considered moderate risk. If this is the case, consider specialist referral to assess eligibility for a risk reducing agent. 2. If overall lifetime risk for the development of breast cancer is 20% or higher, the patient may qualify for future screening with alternating mammogram and breast MRI. Electronically signed and approved by: Asaf Garrido M.D. Radiologis
== END | disposition home or self-care (01) ==
LOC: RADMAMWWP 08:05
PROVIDERS: ATTEND Family Medicine
DX: Z12.31 Encounter for screening mammogram for malignant neoplasm of breast (principal); Z78.0 Asymptomatic menopausal state; Z80.3 Family history of malignant neoplasm of breast
CPT/HCPCS: 77063; 77067

== ENCOUNTER → 2023-05-09 | Outpatient (CLI) | payer BC, OTHER ==
--- NOTE | 2023-05-09 07:29 | MM ---
Reason for Exam: Additional evaluation requested from abnormal screening. Last screening mammogram was performed less than 1 month ago. Patient History: Menarche at age 14. First Full-Term at age 25. Left ovary removed at age 45. Hysterectomy at age 45. Postmenopausal. Patient used Hormonal Contraceptives for 5 years. 10/12/2017, Benign Core Biopsy on the left side. Maternal grandmother had breast cancer, age 60. Maternal aunt had breast cancer, age 70. Risk Values: Gertrude 5 year model risk: 1.1%. NCI Lifetime model risk: 10.2%. Prior Study Comparison: 02/03/2021 Bilateral Screening Mammogram, [facility]. 02/28/2022 Bilateral MG 3D screening mammo w/cad, [facility]. 05/01/2023 Bilateral MG 3D screening mammo w/cad, [facility]. Tissue Density: Right: There are scattered areas of fibroglandular density. Findings: Analyzed By CAD. Compression plate is residual 0.3 cm density with a present posterior to the nipple in the midline. This may have been present previously including 2017. Short-term follow-up recommended to confirm stability No suspicious groups of microcalcifications, spiculated or lobular masses, architectural distortion or other secondary signs of malignancy are mammographically apparent. Overall Assessment: Probably benign, BI-RAD 3 Management: Diagnostic Mammogram of the right breast in 6 months. A negative mammogram report should not preclude additional follow up of suspicious palpable abnormalities. Patient should continue monthly self breast exam. A clinical breast exam by your physician is recommended on an annual basis and results should be correlated with mammographic findings. Electronically signed and approved by: Jaime Everett D.O. Radiologis
== END | disposition home or self-care (01) ==
LOC: RADMAMWWP 07:04
PROVIDERS: ATTEND Family Medicine
DX: R92.321 Mammographic fibroglandular density, right breast (principal); Z78.0 Asymptomatic menopausal state; Z80.3 Family history of malignant neoplasm of breast
CPT/HCPCS: 77061; 77065

== ENCOUNTER 2023-09-12 09:50 | Day surgery (SDC) | payer BC, OTHER ==
[~2023-09-12 09:50] MED LIST changes: +BUPIVACAINE (PF) 0.25% 10 ML VIAL ONE; -DEXAMETHASONE SOD PHOSPHATE 4 MG/ML 1 ML VIAL IV ONE; +DEXAMETHASONE SOD PHOSPHATE 4 MG/ML 1 ML VIAL ONE; -HYDROmorphone 0.5 MG/0.5 ML SYRINGE IVP PRN; +LACTATED RINGERS 1,000 ML BAG ONE; +LIDOCAINE 1% INJ 10MG/ML (20 ML MDV) ONE; +LIDOCAINE 2% (PF) 20 MG/ML 5 ML VIAL ONE; -MIDAZOLAM 2 MG/2 ML VIAL IV PRN; +MIDAZOLAM 2 MG/2 ML VIAL ONE; -ONDANSETRON 4 MG/2 ML VIAL IVP ONE; +ONDANSETRON 4 MG/2 ML VIAL ONE; +PROPOFOL 10 MG/ML 20 ML VIAL IV ONE; -SCOPOLAMINE 1.5MG/72HR PATCH TRANSDERM ONE; +fentaNYL (PF) 50 MCG/ML 2 ML AMP ONE
[2023-09-25] MEDS ORDERED: ACETAMINOPHEN TAB 325 MG TAB ONE ×2 (10:32)
== END 2023-09-12 10:13 | disposition home or self-care (01) ==
LOC: OR 09:50
PROVIDERS: ATTEND Orthopaedic Surgery Hand Surgery
DX: M65.4 Radial styloid tenosynovitis [de Quervain]

== ENCOUNTER → 2023-12-05 | Outpatient (CLI) | payer BC, OTHER ==
--- NOTE | 2023-12-05 08:42 | MM ---
Reason for Exam: Follow-up at short interval from prior study. Last screening mammogram was performed 7 month(s) ago. Patient History: Menarche at age 14. First Full-Term at age 25. Left ovary removed at age 45. Hysterectomy at age 45. Postmenopausal. Patient used Hormonal Contraceptives for 5 years. 10/12/2017, Benign Core Biopsy on the left side. Maternal grandmother had breast cancer, age 60. Maternal aunt had breast cancer, age 70. Risk Values: Gertrude 5 year model risk: 1.1%. NCI Lifetime model risk: 10.0%. Prior Study Comparison: 02/28/2022 Bilateral MG 3D screening mammo w/cad, [facility]. 05/01/2023 Bilateral MG 3D screening mammo w/cad, [facility]. 05/09/2023 Right MG 3D work up w/cad RT, [facility]. Tissue Density: Right: There are scattered areas of fibroglandular density. Findings: Analyzed By CAD. The previous question 3 mm central nodularity at a middle depth has not persisted. An area of lateral subareolar asymmetric density appears more defined and incompletely disperses on spot 3-D. However, no correlate on the MLO view. Further ultrasound evaluation is recommended. Overall Assessment: Incomplete: need additional imaging evaluation, BI-RAD 0 Management: Diagnostic Breast Ultrasound of the right breast. [facility], , 12/05/2023 8:36 AM. Electronically signed and approved by: Esthela Zapata M.D. Radiologist
--- NOTE | 2023-12-05 09:13 | USB ---
Reason for Exam: Additional evaluation requested from abnormal screening. Patient History: Menarche at age 14. First Full-Term at age 25. Left ovary removed at age 45. Hysterectomy at age 45. Postmenopausal. Patient used Hormonal Contraceptives for 5 years. 10/12/2017, Benign Core Biopsy on the left side. Maternal grandmother had breast cancer, age 60. Maternal aunt had breast cancer, age 70. Risk Values: Gertrude 5 year model risk: 1.1%. NCI Lifetime model risk: 10.0%. Technique: Method: Targeted. Prior Study Comparison: 02/28/2022 Bilateral MG 3D screening mammo w/cad, [facility]. 05/01/2023 Bilateral MG 3D screening mammo w/cad, [facility]. 05/09/2023 Right MG 3D work up w/cad RT, [facility]. Findings: The axilla of the right breast and the retroareolar of the right breast were scanned. Ultrasound subareolar and periareolar right breast as well as scanning of the axilla. Ectatic duct is noted at the 9:00 subareolar region. However, no other solid or cystic lesion or axillary lymphadenopathy. Overall Assessment: Probably benign, BI-RAD 3 Management: Diagnostic Mammogram of both breasts in 6 months. Total one-year follow-up right breast lateral subareolar density (as the originally questioned 3 mm nodularity central CC view is no longer identified) and annual exam of the left breast. A clinical breast exam by your physician is recommended on an annual basis and results should be correlated with mammographic findings. This exam should not preclude additional follow-up of suspicious palpable abnormalities. Results were given to the patient verbally at the time of exam. [facility], , 12/05/2023 9:04 AM. Electronically signed and approved by: Esthela Zapata M.D. Radiologist
== END | disposition home or self-care (01) ==
LOC: RADMAMWWP 07:48
PROVIDERS: ATTEND Family Medicine
CPT/HCPCS: 77061; 77065

== ENCOUNTER → 2024-04-25 | Outpatient (CLI) | payer BC ==
--- NOTE | 2024-04-25 15:16 | MR ---
EXAMINATION TYPE: MR brain wo con DATE OF EXAM: 04/25/2024 1:30 PM COMPARISON: None. 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 No gadolinium was given. FINDINGS: The optic nerves are symmetric the globes are intact and symmetrical. The tillman-white junctions, ventricular system, basal cisterns appear unremarkable. . Midline structu res show no abnormality. Diffusion-weighted imaging shows no evidence of restricted diffusion. The oviedo sceptibility weighted images do not reveal any evidence for micro-hemorrhage. The bone marrow signal is within normal limits. Paranasal sinuses and mastoid air cells: High T2 signal within the right mastoid air cells. Visualized orbits: Orbital contents are intact. IMPRESSION: Symmetrical optic nerves, globes and orbits. No evidence of intracranial mass or acute/subacute infar ct. [facility], , 04/25/2024 3:13 PM
== END | disposition home or self-care (01) ==
LOC: RADMRIMAIN 12:59
PROVIDERS: ATTEND Ophthalmology
DX: H46.01 Optic papillitis, right eye (principal)
CPT/HCPCS: 70551

== ENCOUNTER → 2024-08-26 | Outpatient (CLI) | payer BC ==
--- NOTE | 2024-08-26 08:53 | MM ---
Reason for Exam: Follow-up at short interval from prior study. Last mammogram was performed 1 year(s) and 4 month(s) ago. Patient History: Menarche at age 14. First Full-Term at age 25. Left ovary removed at age 45. Hysterectomy at age 45. Postmenopausal. Patient used Hormonal Contraceptives for 5 years. 10/12/2017, Benign Core Biopsy on the left side. Maternal grandmother had breast cancer, age 60. Maternal aunt had breast cancer, age 70. Risk Values: Gertrude 5 year model risk: 1.1%. NCI Lifetime model risk: 9.8%. Tissue Density: There are scattered areas of fibroglandular density. Findings: Analyzed By CAD. Area of concern/asymmetry on the right side compresses out on spot compression imaging. No suspicious masses, calcifications or distortions. Overall Assessment: Benign, BI-RAD 2 Management: Screening Mammogram of both breasts in 1 year. Results were given to the patient verbally at the time of exam. Patient should continue monthly self-breast exams. A clinical breast exam by your physician is recommended on an annual basis. This exam should not preclude additional follow-up of suspicious palpable abnormalities. Note on Gertrude scores and lifetime risk: 1. A Gertrude score greater than 3% is considered moderate risk. If this is the case, consider specialist referral to assess eligibility for a risk reducing agent. 2. If overall lifetime risk for the development of breast cancer is 20% or higher, the patient may qualify for future screening with alternating mammogram and breast MRI. [facility], , 08/26/2024 8:50 AM. Electronically signed and approved by: Hardeep Hunter DO
== END | disposition home or self-care (01) ==
LOC: RADMAMWWP 08:26
PROVIDERS: ATTEND Family Medicine
DX: R92.2 Inconclusive mammogram (principal); R92.323 Mammographic fibroglandular density, bilateral breasts; Z78.0 Asymptomatic menopausal state; Z92.0 Personal history of contraception; Z80.3 Family history of malignant neoplasm of breast
CPT/HCPCS: 77062; 77066